=== PATIENT | male | born 2000 | race Caucasian/White ===

== ENCOUNTER 2022-07-19 00:47 | Emergency (ER) | payer OTHER, SELFPAY ==
[2022-07-19 00:49] VITALS: BP 149/88; PULSE 71; RESP 16; TEMP 36.7; O2SAT 100; BMI 22.2
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
[2022-07-19] MEDS: DIPH,PERTUSS(ACELL),TET PED/PF 0.5 ML SYRINGE IM (01:48)
[2022-07-19] MEDS: LIDOCAINE HCL 1% PF 50 MG/5 ML VIAL INJ (01:48)
== END 2022-07-19 01:57 | disposition home or self-care (01) ==
PROVIDERS: Emergency Provider Emergency Medicine
DX: S71.111A Laceration without foreign body, right thigh, initial encounter (principal); F17.210 Nicotine dependence, cigarettes, uncomplicated; Z23 Encounter for immunization; V28.09XA Other motorcycle driver injured in noncollision transport accident in nontraffic accident, initial encounter
CPT/HCPCS: 12001; 90471; 90700; 90715; 99284